=== PATIENT | male | born 1940 | race Caucasian/White ===

== ENCOUNTER → 2016-08-08 | Day surgery (SDC) | payer MEDICARE, BC ==
[~2016-08-08] VITALS: Ht 177.8 cm; Wt 84.1 kg
[~2016-08-08] MED LIST: ALTACE10 MG PO; ASPIRIN EC81 MG PO; BENADRYL25 MG PO; BETAPACE (GENER80 MG PO; CIMETIDINE300 MG PO; CINNAMON500 MG PO; CITRACAL+D(315M1 TAB PO; CLARITIN10 MG PO; GLUCOPHAGE500 MG PO; LEVOTHROID (S125 MCG PO; NORVASC5 MG PO; OXYGEN M-15 INH; PRESERVISION A1 EAC1 PO; SLOW-MAG (64 MG1 TAB PO; VITAMIN B-1000 MCG/M SUB-Q; VITAMIN B-150 MG PO; XARELTO20 MG PO; ZOCOR20 MG PO
--- NOTE | ~2016-08-08 | OR ---
PATIENT'S NAME: HILARY GUTIERREZ [facility] AGE: 75 Y [address] ROOM: [place] [address] LOCATION: [facility] [place] ADMIT DATE: 08/08/2016 OR/Procedure Report DISCHARGE DATE: FAMILY PHYSICIAN: Sarah Maravilla MD ATTENDING PHYSICIAN: Ning Child SURGEON: Ning Child MD BIOLOGY INSTRUCTOR: DATE OF PROCEDURE: 08/08/2016 PROCEDURE: DC cardioversion. INDICATION: Atrial fibrillation refractory to antiarrhythmic drug therapy. Mr. Gutierrez was brought to the preop suite in the fasting state. Prepped and draped in normal manner. Paddles were placed in AP dimension. Subsequently 70 mg propofol was administered through the nurse computed tomography technologist. Once adequate levels of sedation were obtained, 200 joules synchronized therapy was delivered with prompt zoroastrianism of sinus rhythm and sinus bradycardia. CONCLUSION: 1. Successful zoroastrianism of normal sinus rhythm using DC cardioversion. 2. 12-lead EKG is pending at the time of this dictation. 3. The patient will continue on antiarrhythmic drug therapy as well as long- term anticoagulation. I would like to thank Dr. Maravilla for the opportunity to participate in the care Mr. Gutierrez. NING CHILD MD DJM/modl /[id number] CC: Sarah Maravilla MD d: 08/09/16 1048 t: 08/16/16 1220, OPERATIVE SUMMARY
== END | disposition disaster alternative care site (69) ==
LOC: GPOC 08-04 09:00 → GSDC 07:33 → GPOC 08:00
DX: I48.1 Persistent atrial fibrillation (principal); T46.2X5A Adverse effect of other antidysrhythmic drugs, initial encounter; M19.90 Unspecified osteoarthritis, unspecified site; E11.9 Type 2 diabetes mellitus without complications; I25.10 Atherosclerotic heart disease of native coronary artery without angina pectoris; I10 Essential (primary) hypertension; E78.00 Pure hypercholesterolemia, unspecified; I34.0 Nonrheumatic mitral (valve) insufficiency; E78.5 Hyperlipidemia, unspecified; E03.9 Hypothyroidism, unspecified; Z90.49 Acquired absence of other specified parts of digestive tract; Z98.41 Cataract extraction status, right eye; Z98.42 Cataract extraction status, left eye; Z98.890 Other specified postprocedural states; Z95.1 Presence of aortocoronary bypass graft; Z79.82 Long term (current) use of aspirin; Z79.899 Other long term (current) drug therapy; Z79.01 Long term (current) use of anticoagulants; Z88.5 Allergy status to narcotic agent
CPT/HCPCS: J2001; J7030